=== PATIENT | female | born 1960 | race Caucasian/White ===

== ENCOUNTER 2019-01-31 17:44 | Emergency (ER) | payer OTHER ==
[2019-01-31] MEDS ORDERED: Acetaminophen TAB* 325 MG PO ONE (18:32)
--- NOTE | 2019-01-31 18:38 | UC ---
UC General HPI - HPI Summary HPI Summary: 59-year-old woman comes in with a chief complaint of thoracic pain and neck pain after falling 2 days ago at home. She reports that she slipped and fell. She landed on her thoracic back and she feels like she also twisted her neck when she fell. Denies any head pain. Pain is worse with twisting and turning bending. Patient to keep breath does not make the pain worse. No shortness of breath. No low back pain. Patient takes acetaminophen which does help some with the pain. - History of Current Complaint Chief Complaint: UCBackPain Stated Complaint: BACK PAIN ( PT FELL 2 DAYS AGO) Time Seen by Provider: 01/31/19 18:24 Pain Intensity: 10 - Allergy/Home Medications Allergies/Adverse Reactions: Allergies Allergy/AdvReac Type Severity Reaction Status Date / Time Sulfa (Sulfonamide Allergy Hives Verified 01/31/19 18:04 Antibiotics) Home Medications: Home Medications Blood Pressure Med 20 mg PO DAILY 01/31/19 [History] Cranberry 400 mg PO DAILY 01/31/19 [History Confirmed 01/31/19] Kidney Med 01/31/19 [History Confirmed 01/31/19] Lactobacillus Combination No.8 [Adult Probiotic] 1 each PO DAILY 01/31/19 [ History Confirmed 01/31/19] PMH/Surg Hx/FS Hx/Imm Hx Previously Healthy: Yes - RENAL INSUFFICIENCY Cardiovascular History: Hypertension - Surgical History Surgical History: Yes Surgery Procedure, Year, and Place: gastric bypass. hernia. appy. 2 c sections/tubal/hyster - Family History Known Family History: Positive: Non-Contributory - Social History Alcohol Use: Rare Substance Use Type: None Smoking Status (MU): Never Smoked Tobacco Review of Systems All Other Systems Reviewed And Are Negative: Yes Constitutional: Positive: Fever - NO C/O FEVER, TEMP 101.9 ON TRIAGE Skin: Positive: Negative Eyes: Positive: Negative ENT: Positive: Negative Respiratory: Positive: Negative Cardiovascular: Positive: Chest Pain - SEE HPI Gastrointestinal: Positive: Negative Genitourinary: Positive: Negative Motor: Positive: Negative Neurovascular: Positive: Negative Musculoskeletal: Positive: Other: - SEE HPI Neurological: Positive: Negative Psychological: Positive: Negative Is Patient Immunocompromised?: No Physical Exam Triage Information Reviewed: Yes Appearance: Well-Appearing, Well-Nourished, Pain Distress - MILD WITH ROM Vital Signs: Initial Vital Signs Temp 101.9 F 01/31/19 17:57 Pulse 103 01/31/19 17:57 Resp 18 01/31/19 17:57 BP 103/62 01/31/19 17:57 Pulse Ox 98 01/31/19 17:57 Vital Signs Reviewed: Yes Eye Exam: Normal Eyes: Positive: Conjunctiva Clear Neck: Positive: Supple, Other: - Neck is tender to palpation of the posterior aspect Respiratory: Positive: Lungs clear, Normal breath sounds, No respiratory distress, Other: - Thoracic back is tender in the midline from about T8 or [address] into the neck. The ribs on the lateral aspects are nontender. Cardiovascular: Positive: RRR Abdomen Description: Positive: Nontender. Negative: CVA Tenderness (R), CVA Tenderness (L) Musculoskeletal: Positive: Other: - No lumbar spine tenderness Neurological: Positive: Alert, Muscle Tone Normal Psychological: Positive: Age Appropriate Behavior Skin Exam: Normal Course/Dx - Course Course Of Treatment: Acetaminophen 650 mg by mouth was ordered for the patient's neck and back pain. Thoracic spine x-rays and rib x-rays with the chest x-ray and a CT of the C- spine ordered for the patient's pain from her fall 2 days ago. When patient was in x-ray she passed out while standing up. There is swelling on her forehead after the fall and she was hypotensive and diaphoretic. Patient was transferred to the [facility] by ambulance. - Diagnoses Provider Diagnosis: Syncope, Thoracic back pain, Neck pain Discharge - Sign-Out/Discharge Documenting (check all that apply): Patient Departure All imaging exams completed and their final reports reviewed: No - Discharge Plan Condition: Good Disposition: TRANS HIGHER LVL OF CARE FAC Referrals: Non Staff,Doctor [Primary Care Provider] - - Billing Disposition and Condition Condition: GOOD Disposition: Trans Higher Lvl of Care Fac
[2019-01-31] MEDS ORDERED: NS 0.9% 1000 ML** 1,000 ML IV ONE (19:16)
[2019-01-31 19:31] VITALS: BP 94/56
--- NOTE | 2019-02-01 11:27 | UC ---
- Progress Note Progress Note: Radiologist reading of chest x-ray from January 31, 2019 comes back as suggestive of small left pleural effusion. Provider interpretation of the same date was no acute disease process. Patient was transferred to the [facility] and admitted there. Therefore at this time there is no need to pursue further imaging or patient management based on the findings of the chest x-ray. Course/Dx - Diagnoses Provider Diagnoses: Syncope, Thoracic back pain, Neck pain Discharge - Sign-Out/Discharge Documenting (check all that apply): Patient Departure All imaging exams completed and their final reports reviewed: Yes - Discharge Plan Condition: Good Disposition: TRANS HIGHER LVL OF CARE FAC Referrals: Non Staff,Doctor [Primary Care Provider] - - Billing Disposition and Condition Condition: GOOD Disposition: Trans Higher Lvl of Care Fac
== END 2019-01-31 19:25 | disposition short-term general hospital (02) ==
LOC: UCCORT 17:44
DX: R55 Syncope and collapse (principal); M54.6 Pain in thoracic spine; M54.2 Cervicalgia; W19.XXXA Unspecified fall, initial encounter; Y92.009 Unspecified place in unspecified non-institutional (private) residence as the place of occurrence of the external cause; R91.8 Other nonspecific abnormal finding of lung field; N28.9 Disorder of kidney and ureter, unspecified; I10 Essential (primary) hypertension
CPT/HCPCS: 71045; 72125; 99203; A9270-GY; G0463